=== PATIENT | female | born 1995 | race Caucasian/White ===

== ENCOUNTER 2016-07-07 12:02 | Emergency (ER) | payer MEDICAID ==
[2016-07-07] MEDS ORDERED: Sodium Chloride 0.9% 1000 ML 1,000 ML IV STA (12:36)
--- NOTE | 2016-07-07 12:42 | ERPHSYRPT ---
- History of Present Illness Time Seen by Provider: 07/07/16 12:36 Source: patient, family Exam Limitations: no limitations Patient Subjective Stated Complaint: 8 weeks and started cramping and bleeding. Triage Nursing Assessment: pt walked into ER, skin, pink warm and dry. respirations even and unlabored. Physician History: The patient is a female at 8 weeks complaining of vaginal bleeding for 1-1/2 hours with mild pelvic cramping. She denies abdominal pain. She has been mildly lightheaded and nauseated. Timing/Duration: hour(s) (03 20/2) Activites at Onset: none Quality: cramping Pain Radiation: none Severity of Pain-Max: mild Severity of Pain-Current: mild Prior abdominal problems: none Sexual intercourse history: non-contributory Modifying Factors: Improves With: nothing Associated Symptoms: other (vaginal bleeding) Allergies/Adverse Reactions: latex Allergy (Verified 10/10/15 00:28) Hives Hx Tetanus, Diphtheria Vaccination/Date Given: Yes Hx Influenza Vaccination/Date Given: No Hx Pneumococcal Vaccination/Date Given: Yes - Review of Systems Constitutional: No Fever, No Chills Eyes: No Symptoms Ears, Nose, & Throat: No Symptoms Respiratory: No Cough, No Dyspnea Cardiac: No Chest Pain, No Edema, No Syncope Abdominal/Gastrointestinal: Other (cramping) Genitourinary Symptoms: Vaginal Bleeding Musculoskeletal: No Back Pain, No Neck Pain Skin: No Rash Neurological: No Dizziness, No Focal Weakness, No Sensory Changes Psychological: No Symptoms Endocrine: No Symptoms Hematologic/Lymphatic: No Symptoms Immunological/Allergic: No Symptoms All Other Systems: Reviewed and Negative - Past Medical History Pertinent Past Medical History: No Neurological History: No Pertinent History ENT History: No Pertinent History Cardiac History: No Pertinent History Respiratory History: No Pertinent History Endocrine Medical History: No Pertinent History Musculoskeletal History: No Pertinent History GI Medical History: No Pertinent History History: No Pertinent History Psycho-Social History: Anxiety Female Reproductive Disorders: No Pertinent History - Past Surgical History Past Surgical History: No Neuro Surgical History: No Pertinent History Cardiac: No Pertinent History Respiratory: No Pertinent History Gastrointestinal: No Pertinent History Genitourinary: No Pertinent History Musculoskeletal: No Pertinent History Female Surgical History: Section Other Surgical History: left eye, tonsils - Social History Smoking Status: Never smoker Exposure to second hand smoke: No Alcohol Use: None Drug Use: none Patient Lives Alone: No Significant Family History: no pertinent family hx - Female History Hx Last Menstrual Period: 04/20/2016 Hx Now: (unknown) Expected Date of Delivery: 02/14/17 - Nursing Vital Signs Nursing Vital Signs: Initial Vital Signs Temperature 98.2 F Temperature Source Oral Pulse Rate 96 Respiratory Rate 16 Blood Pressure [Left Arm] 108/71 Pain Intensity 2 - Physical Exam General Appearance: no apparent distress, alert Eye Exam: PERRL/EOMI, eyes nml inspection Ears, Nose, Throat Exam: normal ENT inspection, TMs normal, pharynx normal, moist mucous membranes Neck Exam: normal inspection, non-tender, supple, full range of motion Respiratory Exam: normal breath sounds, lungs clear, No respiratory distress Cardiovascular Exam: regular rate/rhythm, normal heart sounds, normal peripheral pulses Gastrointestinal/Abdomen Exam: soft Pelvic Exam: not done Rectal Exam: not done Back Exam: normal inspection, normal range of motion, No CVA tenderness, No vertebral tenderness Extremity Exam: normal inspection, normal range of motion, pelvis stable Neurologic Exam: alert, oriented x 3, cooperative, learning and development officer II-XII nml as tested, normal mood/affect, sensation nml, No motor deficits Skin Exam: normal color, warm, dry Lymphatic Exam: No adenopathy SpO2 Interpretation: normal SpO2: 96 Oxygen Delivery: Room Air Ordered Tests: Active Orders 24 hr Category Date Time Status Heart Tones-ED STAT Care 07/07/16 13:02 Active IV Insertion STAT Care 07/07/16 12:36 Active BMP Stat Lab 07/07/16 13:00 Completed CBC W DIFF Stat Lab 07/07/16 13:00 Completed HCG, Quantitative (Inhouse) Stat Lab 07/07/16 13:00 Completed UA W/ MICROSCOPIC Stat Lab 07/07/16 13:50 Completed Medication Summary Discontinued Medications Generic Name Dose Route Start Last Admin Trade Name Freq PRN Reason Stop Dose Admin Sodium Chloride 1,000 mls @ 999 mls/hr 07/07/16 12:36 07/07/16 13:12 Sodium Chloride 0.9% 1000 Ml IV 07/07/16 13:36 Not Given .Q1H1M STA Sodium Chloride Confirm 07/07/16 12:50 Sodium Chloride 0.9% 1000 Ml Administered 07/07/16 12:51 Dose 1,000 mls @ ud .ROUTE .STK-MED ONE Lab/Rad Data: Laboratory Result Diagrams 07/07/16 13:00 07/07/16 13:00 Laboratory Results 07/07/16 07/07/16 07/07/16 Range/Units 13:50 13:00 13:00 WBC 6.8 (4.0-10.5) K/mm3 RBC 4.74 (4.1-5.4) M/mm3 Hgb 12.0 (12.0-16.0) gm/dl Hct 37.6 (35-47) % MCV 79.3 (78-100) fl MCH 25.3 L (26-32) pg MCHC 31.9 L (32-36) g/dl RDW 15.6 H (11.5-14.0) % Plt Count 239 (150-450) K/mm3 MPV 10.8 H (6-9.5) fl Gran % 68.1 H (36.0-66.0) % Lymphocytes % 22.0 L (24.0-44.0) % Monocytes % 8.7 (0.0-12.0) % Eosinophils % 0.9 (0.00-5.0) % Basophils % 0.3 (0.0-0.4) % Basophils # 0.02 (0-0.4) Sodium 138 (136-145) mEq/L Potassium 4.1 (3.5-5.1) mEq/L Chloride 104 (98-107) mEq/L Carbon Dioxide 24.0 (21-32) mEq/L Anion Gap 14.5 (5-15) MEQ/L BUN 13 (9-20) mg/dL Creatinine 0.76 (0.55-1.30) mg/dl Estimated GFR > 60 ML/MIN Glucose 93 (70-110) MG/DL Calcium 9.0 (8.5-10.1) mg/dL Beta HCG, Quant 9930 H (0-6) IU/L Ur Collection Type VOID Urine Color YELLOW (YELLOW) Urine Appearance CLEAR (CLEAR) Urine pH 5.5 (5-6) Ur Specific [place] >=1.030 (1.005-1.025) Urine Protein 30 (Negative) Urine Glucose (UA) NEGATIVE (NEGATIVE) mg/dL Urine Ketones MODERATE-40 (NEGATIVE) Urine Nitrite NEGATIVE (NEGATIVE) Urine Bilirubin NEGATIVE (NEGATIVE) Urine Urobilinogen 0.2 (0-1) mg/dL Urine WBC (Auto) NEGATIVE (NEGATIVE) Urine RBC (Auto) MODERATE (0-5) Jhonny/ul Specimen Received 07/07/2016 1405 - Progress Progress: unchanged Air Movement: good Progress Note: 07/07/16 14:43 FHT not heard by Doppler. Counseled pt/family regarding: lab results, diagnosis, need for follow-up - Departure Time of Disposition: 14:40 Departure Disposition: Home Clinical Impression: Threatened , Dehydration Condition: Stable Critical Care Time: No Additional Instructions: You have a threatened spontaneous . The level of quantitative hCG is slightly low for the weeks of you are at. You are to follow-up with Dr. Casillas for a second quantitative hCG level. You also are dehydrated. You were offered IV fluids in the ER but declined. No heart tones were identified by Doppler today. Stay well hydrated.
[2016-07-07] MEDS ORDERED: Sodium Chloride 0.9% 1000 ML 1,000 ML ONE (12:50)
[2016-07-07 13:12] LABS: BASOPHIL % 0.3 % (0.0-0.4); Eosinophil % 0.9 % (0.00-5.0); Granulocytes % 68.1 % (36.0-66.0); Mean Cell Volume 79.3 fl (78-100); Mean Corpuscular Hemoglobin 25.3 pg (26-32); Mean Platelet Volume 10.8 fl (6-9.5); Monocytes % 8.7 % (0.0-12.0); Platelet Count 239 K/mm3 (150-450); Red Blood Count 4.74 M/mm3 (4.1-5.4); Red Cell Distribution Width 15.6 % (11.5-14.0); White Blood Count 6.8 K/mm3 (4.0-10.5)
[2016-07-07 14:03] LABS: ANION GAP 14.5 MEQ/L (5-15); BLOOD UREA NITROGEN 13 mg/dL (9-20); CHLORIDE 104 mEq/L (98-107); Glucose 93 MG/DL (70-110); HCG, Quantitative (Inhouse) 9930 IU/L (0-6); Potassium 4.1 mEq/L (3.5-5.1); SODIUM 138 mEq/L (136-145)
[2016-07-07 14:29] LABS: Collection Type VOID; Ph 5.5 (5-6)
[2016-07-07 14:30] LABS: COMPLETE URINE MICROSCOPIC? YES
[2016-07-07 14:44] VITALS: O2SAT 96
[2016-07-07 14:45] VITALS: BP 124/62; PULSE 79
[2016-07-07 14:49] LABS: Bacteria MODERATE /HPF (NEGATIVE); Epithelial Cells MODERATE /HPF (FEW); Mucus MODERATE /HPF (NEGATIVE); WBC 0-2 /HPF (0-5)
== END 2016-07-07 14:48 | disposition home or self-care (01) ==
LOC: ED 12:02
DX: O20.0 Threatened abortion (principal); E86.0 Dehydration
CPT/HCPCS: 36415; 80048; 81000; 84702; 85025; 99283